=== PATIENT | female | born 1960 | race Caucasian/White ===

== ENCOUNTER 2018-06-29 08:21 | Emergency (ER) | payer OTHER ==
[~2018-06-29] VITALS: Ht 170.2 cm; Wt 77.3 kg
[2018-06-29 08:47] LABS: BASO # 0.1 (0.0-0.2); BASO % 0.8 % (0.0-2.0); EOS # 0.2 (0.0-0.7); EOS % 1.8 % (0-4.0); GRAN % 60.5 % (42.2-75.2); HEMATOCRIT 38.7 % (37.0-47.0); HEMOGLOBIN 13.4 g/dl (12.5-16.0); LYMPH % 30.5 % (20.0-51.0); MEAN CELL VOLUME 94 fl (80.0-100.0); MEAN CORPUSCULAR HEMOGLOBIN 33 pg (27.0-31.0); MEAN CORPUSCULAR HGB CONC 35 g/dl (33.0-37.0); MONO # 0.7 (0.1-0.6); MONO % 5.3 % (1.7-9.3); PLATELET COUNT 267 K/mm3 (130-400); REDCELL DISTRIBUTION WIDTH-CV 11.9 % (11.5-14.5)
[2018-06-29 08:57] LABS: ALBUMIN 4.1 gm/dL (3.5-5.0); BILIRUBIN,TOTAL 0.7 mg/dL (0.0-1.0); CALCIUM 9.4 mg/dL (8.4-10.2); CREATININE, serum 0.69 mg/dL (0.52-1.25); POTASSIUM 3.7 mmol/L (3.4-5.0); TOTAL PROTEIN 7.3 gm/dL (6.4-8.2)
[2018-06-29] MEDS ORDERED: DILAUDID 4MG TAB4 MG PO (12:44)
[2018-06-29] MEDS ORDERED: OXYCONTIN 20MG20 MG PO (12:44)
[2018-06-29] MEDS ORDERED: LUNESTA3 MG PO (12:45)
[2018-06-29] MEDS ORDERED: LEXAPRO20 MG PO (12:45)
[2018-06-29 12:56] VITALS: BP 130/53; PULSE 71; TEMP 98
== END 2018-06-29 13:05 | disposition short-term general hospital (02) ==
LOC: COL.ER 08:21
PROVIDERS: Physician Assistant
DX: S22.41XA Multiple fractures of ribs, right side, initial encounter for closed fracture (principal); R91.1 Solitary pulmonary nodule; G89.29 Other chronic pain; M79.7 Fibromyalgia; F32.9 Major depressive disorder, single episode, unspecified; F41.9 Anxiety disorder, unspecified; Z87.891 Personal history of nicotine dependence; V43.52XA Car driver injured in collision with other type car in traffic accident, initial encounter
CPT/HCPCS: J1170; J2060; J7030; Q9967

== ENCOUNTER 2018-09-01 09:51 | Outpatient (CLI) | payer OTHER ==
[~2018-09-01] VITALS: Ht 170.2 cm; Wt 75.0 kg
[2018-09-01] VITALS (9 sets, daily range): BP systolic 109–119; BP diastolic 52–76; PULSE 51–72; TEMP 97.6
[~2018-09-01 09:51] MED LIST: DILAUDID 4MG TAB4 MG PO; LEXAPRO20 MG PO; LUNESTA3 MG PO; OXYCONTIN 20MG20 MG PO
[2018-09-01] MEDS ORDERED: PRENATAL FORMU1 EAC3 PO (10:15)
[2018-09-01] MEDS ORDERED: BENADRYL25 M2 PO (10:16)
--- NOTE | 2018-09-01 13:40 | NUR ---
Pt returned to EU 10 per bed s/p vertebroplasty. Pt resting well.
--- NOTE | 2018-09-01 15:22 | NUR ---
Pt resting well in bed. Pt jess PO intake s n/v. Report to Brian Gallegos RN who assumed care at this time.
--- NOTE | 2018-09-01 15:26 | NUR ---
Report received from Dorothy Carson.
--- NOTE | 2018-09-01 16:25 | NUR ---
Dischargeinstructions given to pt.Pt verbalizes understanding.INT removed,catheter tip intact.Pt eacortedout via wheelchair into UBEr ride.
== END 2018-09-01 16:25 | disposition home or self-care (01) ==
LOC: COL.CAR 09:51
DX: S32.020A Wedge compression fracture of second lumbar vertebra, initial encounter for closed fracture (principal); F17.290 Nicotine dependence, other tobacco product, uncomplicated; Z90.710 Acquired absence of both cervix and uterus
CPT/HCPCS: J2250; J3010; J7120

== ENCOUNTER 2020-03-09 16:11 | Inpatient (IN) | payer OTHER ==
[~2020-03-09] VITALS: Ht 170.3 cm; Wt 75.2 kg
[~2020-03-09 16:11] MED LIST changes: +BENADRYL25 M2 PO; +PRENATAL FORMU1 EAC3 PO
[2020-03-26] VITALS (15 sets, daily range): BP systolic 111–135; BP diastolic 48–74; PULSE 42–89; TEMP 97.7–98.5
[2020-03-26 07:48] LABS: HEMATOCRIT 40.7 % (37.0-47.0); HEMOGLOBIN 13.9 g/dl (12.5-16.0); MEAN CELL VOLUME 95 fl (80.0-100.0); MEAN CORPUSCULAR HEMOGLOBIN 33 pg (27.0-31.0); MEAN CORPUSCULAR HGB CONC 34 g/dl (33.0-37.0); MEAN PLATELET VOLUME 10.5 fl (7.4-10.4); PLATELET COUNT 333 K/mm3 (130-400); RED BLOOD COUNT 4.28 M/mm3 (4.10-5.30); REDCELL DISTRIBUTION WIDTH-CV 13.2 % (11.5-14.5)
[2020-03-26 07:49] LABS: INR 1.1 (0.8-3.0); PROTHROMBIN TIME 11.8 SECONDS (9.7-12.8)
[2020-03-26 07:51] LABS: PARTIAL THROMBOPLASTIN TIME 37.2 SECONDS (26.0-37.0)
[2020-03-26] MEDS ORDERED: ZOLOFT 25MG25 MG PO (07:56)
[2020-03-26 07:58] LABS: ALBUMIN 4.2 gm/dL (3.5-5.0); BILIRUBIN,TOTAL 0.6 mg/dL (0.0-1.0); CALCIUM 9.8 mg/dL (8.4-10.2); CREATININE, serum 0.68 (0.52-1.25); MAGNESIUM 2.1 mg/dL (1.6-2.3); POTASSIUM 3.7 mmol/L (3.4-5.0); TOTAL PROTEIN 7.9 gm/dL (6.4-8.2)
[2020-03-26] MEDS ORDERED: LOPRESSOR 225 MG/TAB PO (07:58)
[2020-03-26] MEDS ORDERED: ASPIRIN 81M81 MG/TA2 PO (08:18)
--- NOTE | 2020-03-26 09:00 | NUR ---
Pt resting comfortably in room. Clothing placed into labeled patient belongings bag. All belongings will be sent with pt to [facility], and with pt to medical floor for admission following procedure.
--- NOTE | 2020-03-26 09:33 | NUR ---
SEE MERGE DOCUMENTATION FOR MEDICATION ADMINISTRATION AND INTRA/POST PROCEDURE SEDATION ASSESSMENTS.
--- NOTE | 2020-03-26 10:24 | NUR ---
Initial visit; Patient requested prayer prior to her 'Procedure'. Cut Off Saw Grader offered prayer and God's blessings for a successful procedure and rapid and thorough healing.
--- NOTE | 2020-03-26 10:30 | NUR ---
PATIENT ADMITED INTO ROOM 324 POST OP LEFT HEART CATH & LOOP RECORDER. A&O. VSS. DENIES PAIN. LEFT CHEST DRESSING IS CD&I WITH GAUZE & PAPER TAPE. RIGHT RADIAL SITE WITH TR BAND WITH 12CC OF AIR. RIGHT RADIAL SITE IS CD&I. IRREGULAR IN 70'S ON TELE. PATIENT TO START SOTOLOL TRAIL. HEAD TO TOE ASSESSMENT COMPLETE. NO C/O N/V. LIQUIDS AT BEDSIDE. AHA DIET. IV FLUIDS INFUSING INTO LEFT WRIST IV. NO OTHER NEEDS AT THIS TIME. CALL LIGHT IN REACH.
--- NOTE | 2020-03-26 13:00 | NUR ---
PATIENT TOLERATED AHA DIET WELL. NO C/O N/V. QTc 460, SOTOLOL INITIATED. RIGHT RADIAL SITE CD&I. LEFT CHEST DRESSING IS CD&I GAUZE. NO OTHER NEEDS.
--- NOTE | 2020-03-26 14:52 | NUR ---
Financial Institution President met with the patient to complete initial intake. The patient lives in [place] with her son, John Paul. The patient denies DME use and is independent with ADLs. The patient's PCP is Dr. Dudley at [place]. The patient receives medications mainly from [facility] and [facility] or [facility], if needed. The patient does not have advance directives but was interested in a DPOA-HC form. Form provided. The patient plans to return home at discharge. There are no additional needs at this time.
--- NOTE | 2020-03-26 18:54 | NUR ---
Receieved report from REYES Reddy. Pt is currently up and the restroom. Pt acknowleged I introduced myself as her night nurse.
[2020-03-27] VITALS: BP 118/72; PULSE 68; TEMP 97.7
--- NOTE | 2020-03-27 02:16 | NUR ---
Pt is currently sleeping in bed. She has her call light within reach and her bed is in lowest position.
[2020-03-27 04:00] VITALS: BP 120/56; PULSE 59; TEMP 98
[2020-03-27 06:41] LABS: BASO # 0.1 (0.0-0.2); BASO % 1.4 % (0.0-2.0); EOS # 0.4 (0.0-0.7); EOS % 4.2 % (0-4.0); GRAN # 3.7 (1.4-6.5); HEMATOCRIT 39.1 % (37.0-47.0); HEMOGLOBIN 13.3 g/dl (12.5-16.0); LYMPH # 4.3 (1.2-3.4); LYMPH % 46.6 % (20.0-51.0); MEAN CELL VOLUME 96 fl (80.0-100.0); MEAN CORPUSCULAR HEMOGLOBIN 33 pg (27.0-31.0); MEAN CORPUSCULAR HGB CONC 34 g/dl (33.0-37.0); MEAN PLATELET VOLUME 11.1 fl (7.4-10.4); MONO # 0.7 (0.1-0.6); MONO % 7.6 % (1.7-9.3); PLATELET COUNT 301 K/mm3 (130-400); RED BLOOD COUNT 4.09 M/mm3 (4.10-5.30); REDCELL DISTRIBUTION WIDTH-CV 13.2 % (11.5-14.5)
[2020-03-27 06:46] LABS: CALCIUM 9.3 mg/dL (8.4-10.2); CREATININE, serum 0.67 (0.52-1.25); MAGNESIUM 2.2 mg/dL (1.6-2.3); POTASSIUM 3.6 mmol/L (3.4-5.0)
--- NOTE | 2020-03-27 07:03 | NUR ---
Pt currently sleeping in bed. Pt fell asleep around 2am. Pt had a hard time sleeping at first. Pt rested well during the night once her pain was better. Reported off to REYES Clemons, pt has her call light within reach and her bed is in lowest position.
[2020-03-27 07:59] VITALS: BP 106/55; PULSE 61; TEMP 98
--- NOTE | 2020-03-27 08:30 | NUR ---
Patient in bed resting. Alert and oriented x 3. Assessment complete. States back pain this AM. Medictions given per orders. Tele in place. Site to chest with minimal drainage noted. INT without complications. Denies further needs at this time.
--- NOTE | 2020-03-27 11:17 | NUR ---
Bed bath provided to patient.
[2020-03-27 11:30] VITALS: BP 104/56; PULSE 51; TEMP 97.7
--- NOTE | 2020-03-27 13:36 | NUR ---
Follow-up visit; Patient thanked Automotive Generator Repairer for checking in on her today. Patient states that the prayer they prayed together yesterday has had a wonderful outcome and she feels great.
[2020-03-27 16:16] VITALS: BP 99/75; PULSE 60; TEMP 98.1
--- NOTE | 2020-03-27 18:06 | NUR ---
Patient has done well througout the day, minimal needs. Has been up ambulating in [place] independently. Denies pain. Dressing to loop recorder site changed this AM due to drainage, gauze and tegaderm dressing applied. Denies further needs at this time. Patient transfered to Medical room 353, Reported off to [facility].
--- NOTE | 2020-03-27 18:08 | NUR ---
PT ARRIVED TO FLOOR, COMFORTABLE IN ROOM, AOX4. PT PLEASANT, NO NEEDS AT THIS TIME.
[2020-03-27 19:27] VITALS: BP 110/50; PULSE 62; TEMP 98.1
--- NOTE | 2020-03-27 19:42 | NUR ---
Patient resting in bed. Assessment complete. Lungs clear. Heart sounds normal. Bowels active x4. Pulses present throughout. No edema noted. INT left forearm flushed without complications. Reports back pain due to scolosis. Provided with scheduled dilaudid and oxycodone. Wishes to ambulate in hallways. Patient showed where to walk with mask on. Patient returned to room. Denies other needs at this time. Call light in reach.
--- NOTE | 2020-03-28 00:29 | NUR ---
Resting in bed. Denies needs. Call light in reach.
[2020-03-28 00:42] VITALS: BP 118/70; PULSE 73; TEMP 97.9
--- NOTE | 2020-03-28 02:02 | NUR ---
Resting in bed asleep. Call light in reach.
--- NOTE | 2020-03-28 04:22 | NUR ---
Resting in bed. Denies needs. Call light in reach.
[2020-03-28 04:33] VITALS: BP 125/66; PULSE 67; TEMP 97.9
--- NOTE | 2020-03-28 05:54 | NUR ---
Patient had uneventful night. QTC is 529 this AM. Will pass on to next shift. Resting in bed this AM. Call light in reach.
[2020-03-28 07:00] LABS: BASO # 0.1 (0.0-0.2); BASO % 1.5 % (0.0-2.0); EOS # 0.5 (0.0-0.7); EOS % 5.6 % (0-4.0); GRAN # 4.2 (1.4-6.5); GRAN % 46.4 % (42.2-75.2); HEMATOCRIT 43.4 % (37.0-47.0); HEMOGLOBIN 14.5 g/dl (12.5-16.0); LYMPH # 3.4 (1.2-3.4); LYMPH % 37.9 % (20.0-51.0); MEAN CELL VOLUME 95 fl (80.0-100.0); MEAN CORPUSCULAR HEMOGLOBIN 32 pg (27.0-31.0); MEAN CORPUSCULAR HGB CONC 33 g/dl (33.0-37.0); MEAN PLATELET VOLUME 11.3 fl (7.4-10.4); MONO # 0.8 (0.1-0.6); MONO % 8.4 % (1.7-9.3); PLATELET COUNT 332 K/mm3 (130-400); RED BLOOD COUNT 4.59 M/mm3 (4.10-5.30); REDCELL DISTRIBUTION WIDTH-CV 12.9 % (11.5-14.5)
[2020-03-28 07:11] LABS: CALCIUM 9.9 mg/dL (8.4-10.2); CREATININE, serum 0.71 (0.52-1.25); MAGNESIUM 2.1 mg/dL (1.6-2.3); POTASSIUM 4.2 mmol/L (3.4-5.0)
--- NOTE | 2020-03-28 07:12 | NUR ---
Report given to REYES Carpenter
[2020-03-28 07:33] VITALS: BP 127/77; PULSE 76; TEMP 98.7
[2020-03-28] MEDS ORDERED: CEPHALEXIN500 M1 PO (11:19)
--- NOTE | 2020-03-28 11:19 | NUR ---
FRANKLIN IS UP AND WALKING IN THE HALLS, DID REQUEST SHE NOT WALK THROUGH TO SURGICAL AREA.
[2020-03-28] MEDS ORDERED: BETAPACE 80MG80 MG PO (11:20)
[2020-03-28 11:24] VITALS: BP 109/75; PULSE 71; TEMP 97.8
--- NOTE | 2020-03-28 16:30 | NUR ---
PATIENT DISCHARGED HOME AT 1255.
== END 2020-03-28 12:55 | disposition home or self-care (01) | DRG 262 ==
LOC: COL.CAR 03-26 07:00 → EDSTATUS 03-26 07:00 → MEDICAL 03-26 07:00 → SURG 03-26 07:17 → MEDICAL 03-27 18:29
PROVIDERS: ADMIT Internal Medicine Cardiovascular Disease
PROC: 0JH632Z Insertion of Monitoring Device into Chest Subcutaneous Tissue and Fascia, Percutaneous Approach (ICD-10-PCS; principal; 2020-03-26)
PROC: 4A023N7 Measurement of Cardiac Sampling and Pressure, Left Heart, Percutaneous Approach (ICD-10-PCS; 2020-03-26)
DX: I48.0 Paroxysmal atrial fibrillation (principal); I47.1 Supraventricular tachycardia; E78.5 Hyperlipidemia, unspecified
CPT/HCPCS: C1764; J1644; J2250; J3010; Q9967

== ENCOUNTER → 2020-03-20 | Outpatient (CLI) | payer OTHER ==
[~2020-03-20] MED LIST changes: +ASPIRIN 81M81 MG/TA2 PO; +BETAPACE 80MG80 MG PO; +CEPHALEXIN500 M1 PO; +LOPRESSOR 225 MG/TAB PO; +ZOLOFT 25MG25 MG PO
== END ==
LOC: COL.LAB 08:00
DX: Z20.828 Contact with and (suspected) exposure to other viral communicable diseases (principal)